=== PATIENT | female | born 1990 | race Caucasian/White ===

== ENCOUNTER 2021-06-16 11:08 | Inpatient (IN) | payer MEDICAID ==
[2021-06-16] MEDS ORDERED: Tranexamic Acid 1,000 MG in Sodium Chloride 0.9% 100 ML IV PRN (14:10)
[2021-06-16] MEDS ORDERED: Methylergonovine 0.2 MG/1 ML Amp IM PRN (14:10)
[2021-06-16] MEDS ORDERED: Lidocaine 1% 50 ML MDV INJECT PRN (14:10)
[2021-06-16] MEDS ORDERED: Misoprostol 200 MCG Tab PO PRN (14:10)
[2021-06-16] MEDS ORDERED: Nalbuphine 10 MG/1 ML Vial IVPUSH PRN (14:10)
[2021-06-16] MEDS ORDERED: Sodium Chloride 0.9% 2.5 ML Syringe FLUSH PRN (14:10)
[2021-06-16] MEDS ORDERED: Sodium Chloride 0.9% 10 ML Syringe FLUSH PRN (14:10)
[2021-06-16] MEDS ORDERED: Water For Irrigation,Sterile 1,000 ML Container IRR PRN (14:10)
[2021-06-16] MEDS ORDERED: Carboprost Tromethamine 250 MCG/1 ML Amp IM PRN (14:10)
[2021-06-16] MEDS ORDERED: Sodium Chloride 0.9% 10 ML SDV IV PRN (14:10)
[2021-06-16] MEDS ORDERED: Oxytocin/0.9 % Sodium Chloride 30 UNIT/500 ML BAG IV SCH (14:15)
[2021-06-16] MEDS: Butorphanol 1 MG/ML SDV IVPUSH PRN ×3 (16:30→20:59)
[2021-06-16] MEDS: Lactated Ringers 1,000 ML IV SCH (18:22)
[2021-06-16] MEDS ORDERED: Misoprostol 50 MCG (1/2 of 100 MCG) Tab VAG ONE (19:57)
[2021-06-16] MEDS ORDERED: Ondansetron 4 MG/2 ML SDV IVPUSH PRN (20:58)
[2021-06-16] MEDS ORDERED: Ondansetron 4 MG/2 ML SDV ONE (21:03)
[2021-06-16] MEDS ORDERED: Ropivacaine HCl/PF 200 ML ONE ×2 (23:18→23:37)
--- NOTE | 2021-06-17 00:01 | PCM.PREANE ---
Preanesthetic Assessment - Anesthesia/Transfusion/Family Hx Anesthesia History: No Prior Anesthesia Family History of Anesthesia Reaction: No Transfusion History: No Prior Transfusion(s) - Review of Systems General: No Symptoms Pulmonary: No Symptoms Cardiovascular: No Symptoms Gastrointestinal: No Symptoms Neurological: No Symptoms Other: Reports: None - Physical Assessment Height: 5 ft 7 in Weight: 183 lb ASA Class: 2 Mental Status: Alert & Oriented x3 Dentition: Reports: Normal Dentition ROM/Head Extension: Full Lungs: Clear to Auscultation, Normal Respiratory Effort Cardiovascular: Regular Rate, Regular Rhythm - Lab Values: Laboratory Last Values WBC 13.08 K/uL (4.0-11.0) H 06/16/21 14:45 RBC 4.15 M/uL (4.30-5.90) L 06/16/21 14:45 Hgb 12.3 g/dL (12.0-16.0) 06/16/21 14:45 Hct 36.1 % (36.0-46.0) 06/16/21 14:45 MCV 87.0 fL (80.0-98.0) 06/16/21 14:45 MCH 29.6 pg (27.0-32.0) 06/16/21 14:45 MCHC 34.1 g/dL (31.0-37.0) 06/16/21 14:45 RDW Std Deviation 44.9 fl (28.0-62.0) 06/16/21 14:45 RDW Coeff of Tita 14 % (11.0-15.0) 06/16/21 14:45 Plt Count 232 K/uL (150-400) 06/16/21 14:45 MPV 11.00 fL (7.40-12.00) 06/16/21 14:45 Nucleated RBC % 0.0 /100WBC 06/16/21 14:45 Nucleated RBCs # 0 K/uL 06/16/21 14:45 SARS-CoV-2 RNA (OSCAR) NEGATIVE (NEGATIVE) 06/16/21 13:10 Blood Type A NEGATIVE 06/16/21 14:45 Antibody Screen NEGATIVE 06/16/21 14:45 - Allergies Allergies/Adverse Reactions: Allergies Allergy/AdvReac Type Severity Reaction Status Date / Time No Known Allergies Allergy Verified 07/01/14 14:56 - Blood Blood Available: Yes Product(s) Available: PRBC, FFP, Platelets - Anesthesia Plan Pre-Op Medication Ordered: None - Acknowledgements Anesthesia Type Planned: Epidural Pt an Appropriate Candidate for the Planned Anesthesia: Yes Alternatives and Risks of Anesthesia Discussed w Pt/Guardian: Yes Pt/Guardian Understands and Agrees with Anesthesia Plan: Yes PreAnesthesia Questionnaire - CURRENT (IN HOUSE) MEDS Current Meds: Current Medications Butorphanol Tartrate (Butorphanol 1 Mg/Ml Sdv) 1 mg IVPUSH Q1H PRN PRN Reason: Pain (severe 7-10) Last Admin: 06/16/21 20:59 Dose: 1 mg Documented by: Carboprost Tromethamine (Carboprost Tromethamine 250 Mcg/1 Ml Amp) 250 mcg IM ASDIRECTED PRN PRN Reason: Post Hemorrhage Lactated Ringer's (Ringers, Lactated) 1,000 mls @ 150 mls/hr IV ASDIRECTED WES Last Admin: 06/16/21 18:22 Dose: 150 mls/hr Documented by: Oxytocin/Sodium Chloride (Oxytocin 30 Unit/500 Ml-Ns) 30 unit in 500 mls @ 250 mls/hr IV TITRATE WES Tranexamic Acid 1,000 mg/ (Sodium Chloride) 110 mls @ 660 mls/hr IV ONETIME PRN PRN Reason: Bleeding Lidocaine HCl (Lidocaine 1% 50 Ml Mdv) 50 ml INJECT ONETIME PRN PRN Reason: Laceration repair Methylergonovine Maleate (Methylergonovine 0.2 Mg/1 Ml Amp) 0.2 mg IM ASDIRECTED PRN PRN Reason: Post Hemorrhage Misoprostol (Misoprostol 200 Mcg Tab) 200 mcg PO ONETIME PRN PRN Reason: Post Hemorrhage Nalbuphine HCl (Nalbuphine 10 Mg/1 Ml Vial) 10 mg IVPUSH Q1H PRN PRN Reason: Pain (severe 7-10) Last Admin: 06/16/21 22:15 Dose: 10 mg Documented by: Ondansetron HCl (Ondansetron 4 Mg/2 Ml Sdv) 4 mg IVPUSH Q4H PRN PRN Reason: Vomiting Last Admin: 06/16/21 21:05 Dose: 4 mg Documented by: Sodium Chloride (Sodium Chloride 0.9% 10 Ml Syringe) 10 ml FLUSH ASDIRECTED PRN PRN Reason: Keep Vein Open Sodium Chloride (Sodium Chloride 0.9% 2.5 Ml Syringe) 2.5 ml FLUSH ASDIRECTED PRN PRN Reason: Keep Vein Open Sodium Chloride (Sodium Chloride 0.9% 10 Ml Sdv) 10 ml IV ASDIRECTED PRN PRN Reason: IV Use Sterile Water (Water For Irrigation,Sterile 1,000 Ml Container) 1,000 ml IRR ASDIRECTED PRN PRN Reason: delivery Discontinued Medications Ropivacaine (Naropin 0.2%) Confirm Administered Dose 200 mls @ as directed .ROUTE .STK-MED ONE Stop: 06/16/21 23:19 Ropivacaine (Naropin 0.2%) Confirm Administered Dose 200 mls @ as directed .ROUTE .STK-MED ONE Stop: 06/16/21 23:38 Misoprostol (Misoprostol 50 Mcg (1/2 Of 100 Mcg) Tab) 25 mcg VAG ONETIME ONE Stop: 06/16/21 19:58 Ondansetron HCl (Ondansetron 4 Mg/2 Ml Sdv) Confirm Administered Dose 4 mg .ROUTE .STK-MED ONE Stop: 06/16/21 21:04 - Pre-Procedure Checklist Attending Provider Aware: Yes Chart Reviewed: Yes Consent Signed: Yes Labs Reviewed: Yes VS/FHR Reviewed: Yes Patient Identification Confirmation Method: Reports: Verbal Patient Pt an Appropriate Candidate for the Planned Anesthesia: Yes Alternatives and Risks of Anesthesia Discussed w Pt/Guardian: Yes - Procedure Procedure Start Date: 06/16/21 Procedure Start Time: 23:23 Patient Position: Reports: Sitting Prep: Reports: Betadine x3, Sterile Drape Regional Placement Level: Reports: L3-4 Approach: Reports: Midline Technique: Reports: ISIDRO Plastic Syringe Fluid Obtained: Reports: None Loading Dose Time: 23:20 Loading Dose Medication: bupivicaine 0.25% 10cc Loading Dose Patient Position: sitting Continuous Infusion Start Time: 23:25 Continuous Infusion Medication: ropivicaine 0.2% Continuous Infusion Rate: 16 Continuous Infusion PCS Bolus Option: 4 Continuous Infusion Lockout Dose (cc/hr): 32 Patient Position Post Placement: Reports: Alexey/FRAN Procedure End Date: 06/17/21 Procedure End Time: 00:23
--- NOTE | 2021-06-17 00:02 | PCM.POSTAN ---
POST ANESTHESIA ASSESSMENT - MENTAL STATUS Mental Status: Alert, Oriented - RESPIRATORY Respiratory Status: Respiratory Rate WNL, Airway Patent, O2 Saturation Stable - CARDIOVASCULAR CV Status: Pulse Rate WNL, Blood Pressure Stable - GASTROINTESTINAL GI Status: No Symptoms - POST OP HYDRATION Hydration Status: Adequate & Stable
[2021-06-17] MEDS: Lactated Ringers 1,000 ML IV SCH ×3 (00:08→17:42)
[2021-06-17] MEDS ORDERED: Acetaminophen 500 MG Tab PO ONE (05:03)
[2021-06-17] MEDS ORDERED: Acetaminophen 500 MG Tab ONE (05:06)
[2021-06-17] MEDS ORDERED: Ampicillin 2 GM in Sodium Chloride 0.9% 100 ML IV SCH (07:00)
[2021-06-17] MEDS ORDERED: Oxytocin/0.9 % Sodium Chloride 30 UNIT/500 ML BAG IV SCH (07:30)
[2021-06-17] MEDS ORDERED: Bupivacaine 0.5% 10 ML SDV ONE (08:42)
[2021-06-17] MEDS ORDERED: fentaNYL 100 MCG/2 ML SDV ONE (08:43)
[2021-06-17] MEDS ORDERED: ceFAZolin 1 GM Vial ONE (08:52)
[2021-06-17] MEDS ORDERED: Oxytocin 10 Units/1 ML SDV ONE (08:56)
[2021-06-17] MEDS ORDERED: Ondansetron 4 MG/2 ML SDV ONE (08:56)
[2021-06-17] MEDS ORDERED: Ketorolac 30 MG/ML SDV ONE (08:56)
[2021-06-17] MEDS ORDERED: Morphine PF 10 MG/10 ML SDV ONE (09:25)
[2021-06-17] MEDS ORDERED: Oxytocin 10 Units/1 ML SDV IM PRN (10:00)
[2021-06-17] MEDS ORDERED: Lanolin 100% Cream 7 GM Tube TOP PRN (10:00)
[2021-06-17] MEDS ORDERED: Ondansetron 4 MG/2 ML SDV IVPUSH PRN (10:00)
[2021-06-17] MEDS ORDERED: Bisacodyl 10 MG Supp RECTAL PRN (10:00)
[2021-06-17] MEDS ORDERED: Misoprostol 200 MCG Tab RECTAL PRN (10:00)
[2021-06-17] MEDS ORDERED: Acetaminophen/oxyCODONE 325-5 MG Tab PO PRN (10:00)
[2021-06-17] MEDS ORDERED: Methylergonovine 0.2 MG/1 ML Amp IM PRN (10:00)
[2021-06-17] MEDS ORDERED: diphenhydrAMINE 50 MG/ML SDV IVPUSH PRN (10:00)
[2021-06-17] MEDS ORDERED: Tranexamic Acid 1,000 MG in Sodium Chloride 0.9% 100 ML IV PRN (10:00)
--- NOTE | 2021-06-17 10:11 | PCM.OPNOTE ---
- General Post-Op/Procedure Note Date of Surgery/Procedure: 06/17/21 Operative Procedure(s): Primary low transverse section Findings: Viable boy. Apgars 4 and 8. Weight 3490 grams. Pre Op Diagnosis: 30-year-old at 41 weeks 2 days dated by LMP and 10 week ultrasound. Chorioamnionitis, given ampicillin and gentamicin. Occult cord prolapse during labor with abnormal heart tones. Post-Op Diagnosis: Same Anesthesia Technique: Epidural Primary Surgeon: Mimi Mendoza [employer] Top Helper: Gaby Bunn Fluid Replacement, Intraop: 1,000 Output, Urine Amount: 100 EBL in mLs: 600 Complications: None known Condition: Good
--- NOTE | 2021-06-17 10:12 | PCM.OPNOTE ---
- General Post-Op/Procedure Note Condition: Good
[2021-06-17] MEDS ORDERED: diphenhydrAMINE 50 MG/ML SDV IVPUSH ONE (10:32)
[2021-06-17] MEDS ORDERED: Sodium Chloride 0.9% 0 ML ONE (10:45)
[2021-06-17] MEDS: Ampicillin/Sulbactam Na 1.5 GM in Sodium Chloride 0.9% 50 ML IV SCH ×2 (10:53→19:27)
[2021-06-17] MEDS: Simethicone 80 MG Tab.Chew PO SCH ×2 (12:00→19:26)
--- NOTE | 2021-06-17 16:50 | OR ---
SURGEON: Mimi Mendoza M.D. DATE OF PROCEDURE: 06/17/2021 PREOPERATIVE DIAGNOSES: 1. 41 and 4/7 weeks' intrauterine . 2. Abnormal heart tones. 3. Occult cord prolapse. 4. Chorioamnionitis. POSTOPERATIVE DIAGNOSES: 1. 41 and 4/7 weeks' intrauterine . 2. Abnormal heart tones. 3. Occult cord prolapse. 4. Chorioamnionitis. PROCEDURE: Primary low-transverse section. PRIMARY SURGEON: Mimi Mendoza M.D. [employer]: Valentina Bunn MS4. ANESTHESIA: Epidural. ESTIMATED BLOOD LOSS: 600 mL. FLUIDS: 1000 mL of crystalloid in OR. COMPLICATIONS: None. FINDINGS: Viable male. score of 4 at one minute, 8 at five minutes. Weight of 3410 g. Delivery, intact placenta, 3-vessel cord, meconium-stained amniotic fluid. DISPOSITION: to nursery, mom to PACU stable. PROCEDURE DETAILS: Amanda is a 30-year-old G1, P0, at 41 and 3/7 weeks' gestational age, who presented on 06/16/2021 in labor. She was monitored through the labor process by my partner. I assumed care of the patient at 8 a.m. on the morning of 06/17/2021. At that juncture, the patient had been pushing approximately 3 hours, had been started on antibiotics for chorioamnionitis. Meconium-stained fluid was noted, and there were recurrent decelerations. Upon my evaluation, the patient was still a +3 station with transverse presentation. With any attempts at rotation and pushing efforts, it was noticed that there was a loop of cord that was sliding down anteriorly at the 12 o'clock position. It was then reduced between contractions and pushing efforts. Given this finding and with the abnormal heart tones, advised proceeding with . Risks of procedure discussed including infection; bleeding; possible trauma to the surrounding bowel, bladder, ureters; in case of excessive blood loss, need for blood transfusion; in rare lifesaving circumstances, need for hysterectomy; risk for thromboembolic event; risk of anesthesia. The patient and her partner voiced their understanding and agreed to proceed. A proper consent was obtained. The patient was taken to the operating room. The patient underwent re-bolus of her epidural, was transported to the section suite, was placed in modified dorsal supine position with leftward tilt. Did flex the knees to allow for vaginal hand delivery. heart tones remained in the 120s at this point. The patient was prepped and draped in the usual sterile fashion. Foster to gravity. SCDs to the lower extremities. Time-out was performed. Anesthesia was found be adequate. A Pfannenstiel skin incision now was created, carried down to the level of the rectus fascia, was incised in the midline, lateralized on either side sharply and bluntly. Superior aspect of fascia was tented upwards, dissected sharply and bluntly from underlying muscles. A similar aspect performed in the inferior aspect of the fascia. Rectus muscle was in the midline. Peritoneum was entered. Rectus muscles and peritoneum were now lateralized bluntly. Uterine position and position palpated. Self-retaining retractor was gently placed. Uterovesical reflection was visualized. Bladder flap was created sharply and bluntly. Bladder was mobilized away from lower uterine segment. Low transverse hysterotomy was now performed. Uterine cavity was entered with blunt end of the scalpel. Hysterotomy was lateralized bluntly. Meconium-stained fluid was noted. The infant's shoulder was now retracted up and into the abdomen followed by flexion of the head with vaginal hand helping to move the 's head cephalad, was able to flex the head, delivered from the pelvis followed by delivery of shoulders, trunk, remainder of the body without difficulty. The infant's oropharynx and nares were bulb suctioned. Cord was clamped x2 and cut. Infant was immediately handed off to attending foster parent. Cord arterial, cord venous, and cord blood sampling were obtained. The placenta was now delivered. Uterine cavity was cleared of all clot and debris. Hysterotomy repaired using 0 Vicryl in continuous running locked fashion followed by re-imbricating layer. Hemostasis appeared evident. Posterior aspect of the uterus inspected. No defects or hematomas found be forming. Region was well irrigated and suction dried. Uterus returned to the abdominal cavity. Colonic gutters were cleared of all clot and debris, well irrigated and suction dried. Hysterotomy once again inspected and found to be hemostatic. Self-retaining tractor now gently removed. Bladder blade was placed. Hysterotomy once again inspected and found to be hemostatic. The rectus muscle and peritoneum were now reapproximated with 0 Vicryl in inverted mattress suture technique. Anterior aspect of the muscle, posterior aspect of the fascia closely inspected. Any areas of oozing were cauterized. The rectus fascia now reapproximated with 0 Vicryl in continuous running fashion beginning laterally on either side and meeting in the midline. Subcutaneous tissue was well irrigated and suction dried. Any areas of oozing were cauterized. The skin edges were reapproximated using 4-0 Vicryl in subcuticular fashion on Rachid needle. 0.5-inch Steri-Strips with Mastisol was now placed to re-imbricate the incision. Uterus remained firm. Sponge, instrument, and needle count was correct x2. The patient tolerated the procedure well overall. She is going to PACU in stable condition. We will continue with prophylactic antibiotic given the chorioamnionitis. JOESPH NELSON /[id number] MIKAYLA
[2021-06-17] MEDS: Docusate Sodium 100 MG Cap PO SCH (20:25)
[2021-06-17] MEDS: Acetaminophen/oxyCODONE 325-5 MG Tab PO PRN (20:26)
[2021-06-18] MEDS: Simethicone 80 MG Tab.Chew PO SCH ×4 (01:08→23:44)
[2021-06-18] MEDS: Ampicillin/Sulbactam Na 1.5 GM in Sodium Chloride 0.9% 50 ML IV SCH ×3 (03:05→18:13)
[2021-06-18] MEDS: Acetaminophen/oxyCODONE 325-5 MG Tab PO PRN ×3 (04:34→20:21)
[2021-06-18] MEDS ORDERED: Acetaminophen 500 MG Tab PO ONE (06:22)
--- NOTE | 2021-06-18 07:49 | PCM.PNPP ---
<Gaby Bunn - Last Filed: 06/18/21 07:53> - General Info Date of Service: 06/18/21 Subjective Update: Patient doing well overnight, no concerns. Foster catheter out this morning, has not yet spontaneously urinated. Ambulating and tolerating food well. - Review of Systems General: Reports: No Symptoms HEENT: Reports: Sinus Congestion Pulmonary: Reports: No Symptoms Cardiovascular: Reports: No Symptoms Gastrointestinal: Reports: No Symptoms Genitourinary: Reports: No Symptoms Musculoskeletal: Reports: No Symptoms Skin: Reports: No Symptoms Neurological: Reports: No Symptoms Psychiatric: Reports: No Symptoms - General Info Date of Service: 06/18/21 - Patient Data Vital Signs - Most Recent: Last Vital Signs Temp 36.5 C 06/18/21 07:43 Pulse 113 H 06/18/21 07:43 Resp 18 06/18/21 07:43 BP 126/60 06/18/21 07:43 Pulse Ox 99 06/18/21 07:43 Weight - Most Recent: 83.007 kg I&O - Last 24 Hours: Intake & Output 06/17/21 06/18/21 06/18/21 22:59 06:59 14:59 Intake Total 50 Output Total 800 1950 Balance -750 -1950 Lab Results - Last 24 Hours: Laboratory Results - last 24 hr 06/17/21 06/18/21 Range/Units 17:20 05:56 WBC 12.70 H 11.32 H (4.0-11.0) K/uL RBC 3.20 L 2.92 L (4.30-5.90) M/uL Hgb 9.6 L 8.7 L (12.0-16.0) g/dL Hct 27.9 L 25.6 L (36.0-46.0) % MCV 87.2 87.7 (80.0-98.0) fL MCH 30.0 29.8 (27.0-32.0) pg MCHC 34.4 34.0 (31.0-37.0) g/dL RDW Std Deviation 45.4 47.3 (28.0-62.0) fl RDW Coeff of Tita 15 15 (11.0-15.0) % Plt Count 185 174 (150-400) K/uL MPV 11.00 11.10 (7.40-12.00) fL Neut % (Auto) 88.5 H 82.3 H (48.0-80.0) % Lymph % (Auto) 5.4 L 9.1 L (16.0-40.0) % [place] % (Auto) 6.0 7.9 (0.0-15.0) % Eos % (Auto) 0.1 0.6 (0.0-7.0) % Baso % (Auto) 0.0 0.1 (0.0-1.5) % Neut # (Auto) 11.2 H 9.3 H (1.4-5.7) K/uL Lymph # (Auto) 0.7 1.0 (0.6-2.4) K/uL [place] # (Auto) 0.8 0.9 H (0.0-0.8) K/uL Eos # (Auto) 0.0 0.1 (0.0-0.7) K/uL Baso # (Auto) 0.0 0.0 (0.0-0.1) K/uL Nucleated RBC % 0.0 0.0 /100WBC Nucleated RBCs # 0 0 K/uL Med Orders - Current: Current Medications Bisacodyl (Bisacodyl 10 Mg Supp) 10 mg RECTAL ONETIME PRN PRN Reason: Constipation Diphenhydramine HCl (Diphenhydramine 50 Mg/Ml Sdv) 25 mg IVPUSH Q6H PRN PRN Reason: Itching or Nausea Docusate Sodium (Docusate Sodium 100 Mg Cap) 100 mg PO BID [facility] Last Admin: 06/17/21 20:25 Dose: 100 mg Documented by: Emollient Ointment (Lanolin 100% Cream 7 Gm Tube) 0 gm TOP ASDIRECTED PRN PRN Reason: Sore Nipples Lactated Ringer's (Ringers, Lactated) 1,000 mls @ 125 mls/hr IV ASDIRECTED [facility] Last Admin: 06/17/21 17:42 Dose: 999 mls/hr Documented by: Tranexamic Acid 1,000 mg/ (Sodium Chloride) 110 mls @ 660 mls/hr IV ONETIME PRN PRN Reason: Bleeding Ampicillin Sodium/Sulbactam (Sodium 3 gm/ Sodium Chloride) 100 mls @ 200 mls/hr IV Q8H [facility] Methylergonovine Maleate (Methylergonovine 0.2 Mg/1 Ml Amp) 0.2 mg IM ONETIME PRN PRN Reason: Excessive Vaginal Bleeding Misoprostol (Misoprostol 200 Mcg Tab) 1,000 mcg RECTAL ONETIME PRN PRN Reason: excessive bleeding Ondansetron HCl (Ondansetron 4 Mg/2 Ml Sdv) 4 mg IVPUSH Q4H PRN PRN Reason: Nausea/Vomiting Oxycodone/Acetaminophen (Acetaminophen/Oxycodone 325-5 Mg Tab) 1 tab PO Q4H PRN PRN Reason: Pain (severe 7-10) Last Admin: 06/18/21 04:34 Dose: 1 tab Documented by: Oxycodone/Acetaminophen (Acetaminophen/Oxycodone 325-5 Mg Tab) 2 tab PO Q4H PRN PRN Reason: Pain (severe 7-10) Oxytocin (Oxytocin 10 Units/1 Ml Sdv) 10 unit IM ASDIRECTED PRN PRN Reason: Excessive Vaginal Bleeding Simethicone (Simethicone 80 Mg Tab.Chew) 160 mg PO QID [facility] Last Admin: 06/18/21 06:49 Dose: Not Given Documented by: Sodium Chloride (Sodium Chloride 0.9% 10 Ml Syringe) 10 ml FLUSH ASDIRECTED PRN PRN Reason: Keep Vein Open Sodium Chloride (Sodium Chloride 0.9% 2.5 Ml Syringe) 2.5 ml FLUSH ASDIRECTED PRN PRN Reason: Keep Vein Open Sodium Chloride (Sodium Chloride 0.9% 10 Ml Sdv) 10 ml IV ASDIRECTED PRN PRN Reason: IV Use Discontinued Medications Acetaminophen (Acetaminophen 500 Mg Tab) 1,000 mg PO ONETIME ONE Stop: 06/17/21 05:04 Last Admin: 06/17/21 05:08 Dose: 1,000 mg Documented by: Acetaminophen (Acetaminophen 500 Mg Tab) Confirm Administered Dose 1,000 mg .ROUTE .STK-MED ONE Stop: 06/17/21 05:07 Last Admin: 06/17/21 17:55 Dose: Not Given Documented by: Acetaminophen (Acetaminophen 500 Mg Tab) 1,000 mg PO ONETIME ONE Stop: 06/18/21 06:23 Last Admin: 06/18/21 06:53 Dose: 1,000 mg Documented by: Bupivacaine HCl (Bupivacaine 0.5% 10 Ml Sdv) Confirm Administered Dose 20 ml .RO [place] .STK-MED ONE Stop: 06/17/21 08:43 Butorphanol Tartrate (Butorphanol 1 Mg/Ml Sdv) 1 mg IVPUSH Q1H PRN PRN Reason: Pain (severe 7-10) Last Admin: 06/16/21 20:59 Dose: 1 mg Documented by: Carboprost Tromethamine (Carboprost Tromethamine 250 Mcg/1 Ml Amp) 250 mcg IM ASDIRECTED PRN PRN Reason: Post Hemorrhage Cefazolin Sodium (Cefazolin 1 Gm Vial) Confirm Administered Dose 2 gm .ROUTE .STK-MED ONE Stop: 06/17/21 08:53 Diphenhydramine HCl (Diphenhydramine 50 Mg/Ml Sdv) 25 mg IVPUSH ONETIME ONE Stop: 06/17/21 10:33 Last Admin: 06/17/21 10:55 Dose: 25 mg Documented by: Fentanyl (Fentanyl 100 Mcg/2 Ml Sdv) Confirm Administered Dose 100 mcg .ROUTE .STK-MED ONE Stop: 06/17/21 08:44 Lactated Ringer's (Ringers, Lactated) 1,000 mls @ 150 mls/hr IV ASDIRECTED [facility] Last Admin: 06/17/21 00:08 Dose: 150 mls/hr Documented by: Oxytocin/Sodium Chloride (Oxytocin 30 Unit/500 Ml-Ns) 30 unit in 500 mls @ 250 mls/hr IV TITRATE [facility] Tranexamic Acid 1,000 mg/ (Sodium Chloride) 110 mls @ 660 mls/hr IV ONETIME PRN PRN Reason: Bleeding Ropivacaine (Naropin 0.2%) Confirm Administered Dose 200 mls @ as directed .ROUTE .STK-MED ONE Stop: 06/16/21 23:19 Last Admin: 06/17/21 17:56 Dose: Not Given Documented by: Ropivacaine (Naropin 0.2%) Confirm Administered Dose 200 mls @ as directed .ROUTE .STK-MED ONE Stop: 06/16/21 23:38 Last Admin: 06/17/21 17:55 Dose: Not Given Documented by: Ampicillin Sodium 2 gm/ Sodium (Chloride) 100 mls @ 200 mls/hr IV Q6H [facility] Stop: 06/18/21 01:29 Last Admin: 06/17/21 07:27 Dose: 200 mls/hr Documented by: Gentamicin Sulfate 350 mg/ (Sodium Chloride) 58.75 mls @ 100 mls/hr IV ONETIME ONE Stop: 06/17/21 07:50 Last Admin: 06/17/21 07:57 Dose: 100 mls/hr Documented by: Oxytocin/Sodium Chloride (Oxytocin 30 Unit/500 Ml-Ns) 30 unit in 500 mls @ 2 mls/hr IV TITRATE [facility]; Protocol Last Infusion: 06/17/21 08:35 Dose: 0 munits/min, 0 mls/hr Documented by: Ampicillin Sodium/Sulbactam (Sodium 1.5 gm/ Sodium Chloride) 50 mls @ 150 mls/hr IV Q8H [facility] Stop: 06/18/21 02:34 Last Admin: 06/18/21 03:05 Dose: 150 mls/hr Documented by: Sodium Chloride (Normal Saline) Confirm Administered Dose 50 mls @ as directed .ROUTE .STK-MED ONE Stop: 06/17/21 10:46 Last Admin: 06/17/21 17:55 Dose: Not Given Documented by: Ketorolac Tromethamine (Ketorolac 30 Mg/Ml Sdv) Confirm Administered Dose 30 mg .ROUTE .STK-MED ONE Stop: 06/17/21 08:57 Lidocaine HCl (Lidocaine 1% 50 Ml Mdv) 50 ml INJECT ONETIME PRN PRN Reason: Laceration repair Methylergonovine Maleate (Methylergonovine 0.2 Mg/1 Ml Amp) 0.2 mg IM ASDIRECTED PRN PRN Reason: Post Hemorrhage Misoprostol (Misoprostol 200 Mcg Tab) 200 mcg PO ONETIME PRN PRN Reason: Post Hemorrhage Misoprostol (Misoprostol 50 Mcg (1/2 Of 100 Mcg) Tab) 25 mcg VAG ONETIME ONE Stop: 06/16/21 19:58 Morphine Sulfate (Morphine Pf 10 Mg/10 Ml Sdv) Confirm Administered Dose 10 mg .ROUTE .STK-MED ONE Stop: 06/17/21 09:26 Nalbuphine HCl (Nalbuphine 10 Mg/1 Ml Vial) 10 mg IVPUSH Q1H PRN PRN Reason: Pain (severe 7-10) Last Admin: 06/16/21 22:15 Dose: 10 mg Documented by: Ondansetron HCl (Ondansetron 4 Mg/2 Ml Sdv) 4 mg IVPUSH Q4H PRN PRN Reason: Vomiting Last Admin: 06/16/21 21:05 Dose: 4 mg Documented by: Ondansetron HCl (Ondansetron 4 Mg/2 Ml Sdv) Confirm Administered Dose 4 mg .ROUTE .STK-MED ONE Stop: 06/16/21 21:04 Last Admin: 06/17/21 17:56 Dose: Not Given Documented by: Ondansetron HCl (Ondansetron 4 Mg/2 Ml Sdv) Confirm Administered Dose 4 mg .ROUTE .STK-MED ONE Stop: 06/17/21 08:57 Oxytocin (Oxytocin 10 Units/1 Ml Sdv) Confirm Administered Dose 30 unit .ROUTE .STK-MED ONE Stop: 06/17/21 08:57 Sterile Water (Water For Irrigation,Sterile 1,000 Ml Container) 1,000 ml IRR ASDIRECTED PRN PRN Reason: delivery - Infant Interaction Infant Disposition, : [place] to Nursery Feeding: Attempted ; Nursed Fair/Poor Support Person: Significant Other - Recovery Exam Fundal Tone: Firm Fundal Level: 1 Fingerbreadths Below Umbilicus Fundal Placement: Midline Lochia Amount: Scant Lochia Color: Rubra/Red Episiotomy/Laceration: None Urinary Elimination: Other (see below) (Catheter out this morning. Not yet spontaneously urinated) - Exam General: Alert, Oriented, Cooperative Neck: Supple Lungs: Clear to Auscultation, Normal Respiratory Effort Cardiovascular: Regular Rate, Regular Rhythm GI/Abdominal Exam: Soft, Non-Tender Extremities: Normal Inspection, Normal Range of Motion, Non-Tender, No Pedal Edema Skin: Warm, Dry Wound/Incisions: Healing Well, Dressing Dry and Intact Neurological: No New Focal Deficit Psy/Mental Status: Alert, Normal Affect, Normal Mood - Problem List Review Problem List Initiated/Reviewed/Updated: Yes - Assessment Assessment:: 30-year-old s/p primary transverse section POD #1. No complaints. Hbg 8.7, denies symptoms. Afebrile. - Plan Plan:: - Routine care - Encourage ambulation - Aspirin for pain - Monitor incision site pain <Mimi Mendoza - Last Filed: 06/18/21 08:53> - Patient Data Vital Signs - Most Recent: Last Vital Signs Temp 36.5 C 06/18/21 07:43 Pulse 113 H 06/18/21 07:43 Resp 18 06/18/21 07:43 BP 126/60 06/18/21 07:43 Pulse Ox 99 06/18/21 07:43 I&O - Last 24 Hours: Intake & Output 06/17/21 06/18/21 06/18/21 22:59 06:59 14:59 Intake Total 50 Output Total 800 1950 Balance -750 -1950 Lab Results - Last 24 Hours: Laboratory Results - last 24 hr 06/17/21 06/18/21 Range/Units 17:20 05:56 WBC 12.70 H 11.32 H (4.0-11.0) K/uL RBC 3.20 L 2.92 L (4.30-5.90) M/uL Hgb 9.6 L 8.7 L (12.0-16.0) g/dL Hct 27.9 L 25.6 L (36.0-46.0) % MCV 87.2 87.7 (80.0-98.0) fL MCH 30.0 29.8 (27.0-32.0) pg MCHC 34.4 34.0 (31.0-37.0) g/dL RDW Std Deviation 45.4 47.3 (28.0-62.0) fl RDW Coeff of Tita 15 15 (11.0-15.0) % Plt Count 185 174 (150-400) K/uL MPV 11.00 11.10 (7.40-12.00) fL Neut % (Auto) 88.5 H 82.3 H (48.0-80.0) % Lymph % (Auto) 5.4 L 9.1 L (16.0-40.0) % [place] % (Auto) 6.0 7.9 (0.0-15.0) % Eos % (Auto) 0.1 0.6 (0.0-7.0) % Baso % (Auto) 0.0 0.1 (0.0-1.5) % Neut # (Auto) 11.2 H 9.3 H (1.4-5.7) K/uL Lymph # (Auto) 0.7 1.0 (0.6-2.4) K/uL [place] # (Auto) 0.8 0.9 H (0.0-0.8) K/uL Eos # (Auto) 0.0 0.1 (0.0-0.7) K/uL Baso # (Auto) 0.0 0.0 (0.0-0.1) K/uL Nucleated RBC % 0.0 0.0 /100WBC Nucleated RBCs # 0 0 K/uL Med Orders - Current: Current Medications Bisacodyl (Bisacodyl 10 Mg Supp) 10 mg RECTAL ONETIME PRN PRN Reason: Constipation Diphenhydramine HCl (Diphenhydramine 50 Mg/Ml Sdv) 25 mg IVPUSH Q6H PRN PRN Reason: Itching or Nausea Docusate Sodium (Docusate Sodium 100 Mg Cap) 100 mg PO BID [facility] Last Admin: 06/17/21 20:25 Dose: 100 mg Documented by: Emollient Ointment (Lanolin 100% Cream 7 Gm Tube) 0 gm TOP ASDIRECTED PRN PRN Reason: Sore Nipples Lactated Ringer's (Ringers, Lactated) 1,000 mls @ 125 mls/hr IV ASDIRECTED [facility] Last Admin: 06/17/21 17:42 Dose: 999 mls/hr Documented by: Tranexamic Acid 1,000 mg/ (Sodium Chloride) 110 mls @ 660 mls/hr IV ONETIME PRN PRN Reason: Bleeding Ampicillin Sodium/Sulbactam (Sodium 3 gm/ Sodium Chloride) 100 mls @ 200 mls/hr IV Q8H [facility] Methylergonovine Maleate (Methylergonovine 0.2 Mg/1 Ml Amp) 0.2 mg IM ONETIME PRN PRN Reason: Excessive Vaginal Bleeding Misoprostol (Misoprostol 200 Mcg Tab) 1,000 mcg RECTAL ONETIME PRN PRN Reason: excessive bleeding Ondansetron HCl (Ondansetron 4 Mg/2 Ml Sdv) 4 mg IVPUSH Q4H PRN PRN Reason: Nausea/Vomiting Oxycodone/Acetaminophen (Acetaminophen/Oxycodone 325-5 Mg Tab) 1 tab PO Q4H PRN PRN Reason: Pain (severe 7-10) Last Admin: 06/18/21 04:34 Dose: 1 tab Documented by: Oxycodone/Acetaminophen (Acetaminophen/Oxycodone 325-5 Mg Tab) 2 tab PO Q4H PRN PRN Reason: Pain (severe 7-10) Oxytocin (Oxytocin 10 Units/1 Ml Sdv) 10 unit IM ASDIRECTED PRN PRN Reason: Excessive Vaginal Bleeding Simethicone (Simethicone 80 Mg Tab.Chew) 160 mg PO QID [facility] Last Admin: 06/18/21 06:49 Dose: Not Given Documented by: Sodium Chloride (Sodium Chloride 0.9% 10 Ml Syringe) 10 ml FLUSH ASDIRECTED PRN PRN Reason: Keep Vein Open Sodium Chloride (Sodium Chloride 0.9% 2.5 Ml Syringe) 2.5 ml FLUSH ASDIRECTED PRN PRN Reason: Keep Vein Open Sodium Chloride (Sodium Chloride 0.9% 10 Ml Sdv) 10 ml IV ASDIRECTED PRN PRN Reason: IV Use Discontinued Medications Acetaminophen (Acetaminophen 500 Mg Tab) 1,000 mg PO ONETIME ONE Stop: 06/17/21 05:04 Last Admin: 06/17/21 05:08 Dose: 1,000 mg Documented by: Acetaminophen (Acetaminophen 500 Mg Tab) Confirm Administered Dose 1,000 mg .ROUTE .STK-MED ONE Stop: 06/17/21 05:07 Last Admin: 06/17/21 17:55 Dose: Not Given Documented by: Acetaminophen (Acetaminophen 500 Mg Tab) 1,000 mg PO ONETIME ONE Stop: 06/18/21 06:23 Last Admin: 06/18/21 06:53 Dose: 1,000 mg Documented by: Bupivacaine HCl (Bupivacaine 0.5% 10 Ml Sdv) Confirm Administered Dose 20 ml .RO [place] .STK-MED ONE Stop: 06/17/21 08:43 Butorphanol Tartrate (Butorphanol 1 Mg/Ml Sdv) 1 mg IVPUSH Q1H PRN PRN Reason: Pain (severe 7-10) Last Admin: 06/16/21 20:59 Dose: 1 mg Documented by: Carboprost Tromethamine (Carboprost Tromethamine 250 Mcg/1 Ml Amp) 250 mcg IM ASDIRECTED PRN PRN Reason: Post Hemorrhage Cefazolin Sodium (Cefazolin 1 Gm Vial) Confirm Administered Dose 2 gm .ROUTE .STK-MED ONE Stop: 06/17/21 08:53 Diphenhydramine HCl (Diphenhydramine 50 Mg/Ml Sdv) 25 mg IVPUSH ONETIME ONE Stop: 06/17/21 10:33 Last Admin: 06/17/21 10:55 Dose: 25 mg Documented by: Fentanyl (Fentanyl 100 Mcg/2 Ml Sdv) Confirm Administered Dose 100 mcg .ROUTE .[facility] ONE Stop: 06/17/21 08:44 Lactated Ringer's (Ringers, Lactated) 1,000 mls @ 150 mls/hr IV ASDIRECTED [facility] Last Admin: 06/17/21 00:08 Dose: 150 mls/hr Documented by: Oxytocin/Sodium Chloride (Oxytocin 30 Unit/500 Ml-Ns) 30 unit in 500 mls @ 250 mls/hr IV TITRATE [facility] Tranexamic Acid 1,000 mg/ (Sodium Chloride) 110 mls @ 660 mls/hr IV ONETIME PRN PRN Reason: Bleeding Ropivacaine (Naropin 0.2%) Confirm Administered Dose 200 mls @ as directed .ROUTE .[facility] ONE Stop: 06/16/21 23:19 Last Admin: 06/17/21 17:56 Dose: Not Given Documented by: Ropivacaine (Naropin 0.2%) Confirm Administered Dose 200 mls @ as directed .ROUTE .[facility] ONE Stop: 06/16/21 23:38 Last Admin: 06/17/21 17:55 Dose: Not Given Documented by: Ampicillin Sodium 2 gm/ Sodium (Chloride) 100 mls @ 200 mls/hr IV Q6H [facility] Stop: 06/18/21 01:29 Last Admin: 06/17/21 07:27 Dose: 200 mls/hr Documented by: Gentamicin Sulfate 350 mg/ (Sodium Chloride) 58.75 mls @ 100 mls/hr IV ONETIME ONE Stop: 06/17/21 07:50 Last Admin: 06/17/21 07:57 Dose: 100 mls/hr Documented by: Oxytocin/Sodium Chloride (Oxytocin 30 Unit/500 Ml-Ns) 30 unit in 500 mls @ 2 mls/hr IV TITRATE [facility]; Protocol Last Infusion: 06/17/21 08:35 Dose: 0 munits/min, 0 mls/hr Documented by: Ampicillin Sodium/Sulbactam (Sodium 1.5 gm/ Sodium Chloride) 50 mls @ 150 mls/hr IV Q8H [facility] Stop: 06/18/21 02:34 Last Admin: 06/18/21 03:05 Dose: 150 mls/hr Documented by: Sodium Chloride (Normal Saline) Confirm Administered Dose 50 mls @ as directed .ROUTE .STK-MED ONE Stop: 06/17/21 10:46 Last Admin: 06/17/21 17:55 Dose: Not Given Documented by: Ketorolac Tromethamine (Ketorolac 30 Mg/Ml Sdv) Confirm Administered Dose 30 mg .ROUTE .STK-MED ONE Stop: 06/17/21 08:57 Lidocaine HCl (Lidocaine 1% 50 Ml Mdv) 50 ml INJECT ONETIME PRN PRN Reason: Laceration repair Methylergonovine Maleate (Methylergonovine 0.2 Mg/1 Ml Amp) 0.2 mg IM ASDIRECTED PRN PRN Reason: Post Hemorrhage Misoprostol (Misoprostol 200 Mcg Tab) 200 mcg PO ONETIME PRN PRN Reason: Post Hemorrhage Misoprostol (Misoprostol 50 Mcg (1/2 Of 100 Mcg) Tab) 25 mcg VAG ONETIME ONE Stop: 06/16/21 19:58 Morphine Sulfate (Morphine Pf 10 Mg/10 Ml Sdv) Confirm Administered Dose 10 mg .ROUTE .STK-MED ONE Stop: 06/17/21 09:26 Nalbuphine HCl (Nalbuphine 10 Mg/1 Ml Vial) 10 mg IVPUSH Q1H PRN PRN Reason: Pain (severe 7-10) Last Admin: 06/16/21 22:15 Dose: 10 mg Documented by: Ondansetron HCl (Ondansetron 4 Mg/2 Ml Sdv) 4 mg IVPUSH Q4H PRN PRN Reason: Vomiting Last Admin: 06/16/21 21:05 Dose: 4 mg Documented by: Ondansetron HCl (Ondansetron 4 Mg/2 Ml Sdv) Confirm Administered Dose 4 mg .ROUTE .STK-MED ONE Stop: 06/16/21 21:04 Last Admin: 06/17/21 17:56 Dose: Not Given Documented by: Ondansetron HCl (Ondansetron 4 Mg/2 Ml Sdv) Confirm Administered Dose 4 mg .ROUTE .STK-MED ONE Stop: 06/17/21 08:57 Oxytocin (Oxytocin 10 Units/1 Ml Sdv) Confirm Administered Dose 30 unit .ROUTE .STK-MED ONE Stop: 06/17/21 08:57 Sterile Water (Water For Irrigation,Sterile 1,000 Ml Container) 1,000 ml IRR ASDIRECTED PRN PRN Reason: delivery - My Orders Last 24 Hours: My Active Orders 06/17/21 10:00 Patient Status [ADT] Routine Ambulate [RC] PER UNIT ROUTINE Communication Order [RC] PER UNIT ROUTINE Communication Order [RC] PER UNIT ROUTINE Communication Order [RC] Per Unit Routine May Shower [RC] ASDIRECTED Notify Provider Intake and Out [RC] ASDIRECTED Notify Provider Vital Signs [RC] ASDIRECTED RT Incentive Spirometry [RC] Q2HWA Vital Signs [RC] Q1H Acetaminophen/oxyCODONE [Percocet 325-5 MG] 1 tab PO Q4H PRN Acetaminophen/oxyCODONE [Percocet 325-5 MG] 2 tab PO Q4H PRN Lactated Ringers [Ringers, Lactated] 1,000 ml IV ASDIRECTED Lanolin [Lansinoh HPA] See Dose Instructions TOP ASDIRECTED PRN Methylergonovine [Methergine] 0.2 mg IM ONETIME PRN Ondansetron [Zofran] 4 mg IVPUSH Q4H PRN Oxytocin [Pitocin] 10 unit IM ASDIRECTED PRN Tranexamic Acid [Cyklokapron] 1,000 mg Sodium Chloride 0.9% [Normal Saline] 100 ml IV ONETIME bisacodyL [Dulcolax] 10 mg RECTAL ONETIME PRN diphenhydrAMINE [Benadryl] 25 mg IVPUSH Q6H PRN miSOPROStoL [Cytotec] 1,000 mcg RECTAL ONETIME PRN Abdominal Binder [OM.PC] Routine Assess Lochia [WOMSER] Per Unit Routine Assess Uterine Involution [WOMSER] Per Unit Routine Breast Pump [WOMSER] Per Unit Routine Heat Therapy [OM.PC] Routine Ice Therapy [OM.PC] Routine Peripheral IV Discontinue [OM.PC] Routine Sequential Compression Device [OM.PC] Per Unit Routine 06/17/21 10:01 Antiembolic Devices [RC] PER UNIT ROUTINE 06/17/21 10:10 BLOOD GAS ARTERIAL UMBILICAL [BG] Routine BLOOD GAS VENOUS UMBILICAL [BG] Routine 06/17/21 Lunch Regular Diet [DIET] 06/17/21 12:00 Simethicone 160 mg PO QID 06/17/21 21:00 Docusate Sodium [Colace] 100 mg PO BID - Plan Plan:: Patient seen and examined--do not agree with aspirin for pain. SHe has a NSAID allergy. Using percocet and tylenol as needed. Will continue iv unasyn given febrile earlier. White count is stable on CBC. Continue postoperative cares.
[2021-06-18] MEDS: Docusate Sodium 100 MG Cap PO SCH ×2 (10:47→20:21)
[2021-06-18] MEDS ORDERED: Ampicillin/Sulbactam Na 3 GM in Sodium Chloride 0.9% 100 ML IV SCH (11:00)
[2021-06-18] MEDS ORDERED: Iron Sucrose Complex 500 MG in Sodium Chloride 0.9% 250 ML IV ONE (17:47)
[2021-06-19] MEDS: Simethicone 80 MG Tab.Chew PO SCH ×5 (00:42→17:58)
[2021-06-19] MEDS: Acetaminophen/oxyCODONE 325-5 MG Tab PO PRN ×6 (01:14→21:59)
[2021-06-19] MEDS: Ampicillin/Sulbactam Na 1.5 GM in Sodium Chloride 0.9% 50 ML IV SCH ×3 (02:09→17:57)
[2021-06-19] MEDS: Docusate Sodium 100 MG Cap PO SCH ×2 (10:13→21:59)
--- NOTE | 2021-06-19 10:28 | PCM.PNPP ---
- General Info Date of Service: 06/19/21 Functional Status: Reports: Pain Controlled, Tolerating Diet, Ambulating, Urinating (patient is having some neuropathy from pushing for 3 hours, so control is still intermittent) - Review of Systems General: Reports: Fatigue. Denies: Fever, Weakness Pulmonary: Denies: Shortness of Breath Cardiovascular: Denies: Chest Pain, Palpitations, Lightheadedness Gastrointestinal: Denies: Abdominal Pain, Nausea, Vomiting Genitourinary: Reports: Incontinence (having some control issues as bladder feels "numb"). Denies: Dysuria, Flank Pain Musculoskeletal: Reports: No Symptoms Skin: Reports: No Symptoms Neurological: Reports: No Symptoms - General Info Date of Service: 06/19/21 - Patient Data Vital Signs - Most Recent: Last Vital Signs Temp 36.2 C 06/19/21 07:31 Pulse 105 H 06/19/21 07:31 Resp 18 06/19/21 07:31 BP 116/79 06/19/21 07:31 Pulse Ox 97 06/19/21 07:31 Weight - Most Recent: 83.007 kg I&O - Last 24 Hours: Intake & Output 06/18/21 06/19/21 06/19/21 22:59 06:59 14:59 Intake Total 325 Balance 325 Lab Results - Last 24 Hours: Laboratory Results - last 24 hr 06/16/21 Range/Units 14:45 RPR Non-Reac (Non-Reac) Med Orders - Current: Current Medications Bisacodyl (Bisacodyl 10 Mg Supp) 10 mg RECTAL ONETIME PRN PRN Reason: Constipation Diphenhydramine HCl (Diphenhydramine 50 Mg/Ml Sdv) 25 mg IVPUSH Q6H PRN PRN Reason: Itching or Nausea Docusate Sodium (Docusate Sodium 100 Mg Cap) 100 mg PO BID [facility] Last Admin: 06/19/21 10:13 Dose: 100 mg Documented by: Emollient Ointment (Lanolin 100% Cream 7 Gm Tube) 0 gm TOP ASDIRECTED PRN PRN Reason: Sore Nipples Lactated Ringer's (Ringers, Lactated) 1,000 mls @ 125 mls/hr IV ASDIRECTED [facility] Last Admin: 06/17/21 17:42 Dose: 999 mls/hr Documented by: Tranexamic Acid 1,000 mg/ (Sodium Chloride) 110 mls @ 660 mls/hr IV ONETIME PRN PRN Reason: Bleeding Ampicillin Sodium/Sulbactam (Sodium 1.5 gm/ Sodium Chloride) 50 mls @ 100 mls/hr IV Q8H [facility] Stop: 06/20/21 01:29 Last Admin: 06/19/21 10:20 Dose: 100 mls/hr Documented by: Methylergonovine Maleate (Methylergonovine 0.2 Mg/1 Ml Amp) 0.2 mg IM ONETIME PRN PRN Reason: Excessive Vaginal Bleeding Misoprostol (Misoprostol 200 Mcg Tab) 1,000 mcg RECTAL ONETIME PRN PRN Reason: excessive bleeding Ondansetron HCl (Ondansetron 4 Mg/2 Ml Sdv) 4 mg IVPUSH Q4H PRN PRN Reason: Nausea/Vomiting Oxycodone/Acetaminophen (Acetaminophen/Oxycodone 325-5 Mg Tab) 1 tab PO Q4H PRN PRN Reason: Pain (severe 7-10) Last Admin: 06/19/21 09:19 Dose: 1 tab Documented by: Oxycodone/Acetaminophen (Acetaminophen/Oxycodone 325-5 Mg Tab) 2 tab PO Q4H PRN PRN Reason: Pain (severe 7-10) Oxytocin (Oxytocin 10 Units/1 Ml Sdv) 10 unit IM ASDIRECTED PRN PRN Reason: Excessive Vaginal Bleeding Simethicone (Simethicone 80 Mg Tab.Chew) 160 mg PO QID [facility] Last Admin: 06/19/21 06:38 Dose: 160 mg Documented by: Sodium Chloride (Sodium Chloride 0.9% 10 Ml Syringe) 10 ml FLUSH ASDIRECTED PRN PRN Reason: Keep Vein Open Sodium Chloride (Sodium Chloride 0.9% 2.5 Ml Syringe) 2.5 ml FLUSH ASDIRECTED PRN PRN Reason: Keep Vein Open Sodium Chloride (Sodium Chloride 0.9% 10 Ml Sdv) 10 ml IV ASDIRECTED PRN PRN Reason: IV Use Discontinued Medications Acetaminophen (Acetaminophen 500 Mg Tab) 1,000 mg PO ONETIME ONE Stop: 06/17/21 05:04 Last Admin: 06/17/21 05:08 Dose: 1,000 mg Documented by: Acetaminophen (Acetaminophen 500 Mg Tab) Confirm Administered Dose 1,000 mg .ROUTE .[facility] ONE Stop: 06/17/21 05:07 Last Admin: 06/17/21 17:55 Dose: Not Given Documented by: Acetaminophen (Acetaminophen 500 Mg Tab) 1,000 mg PO ONETIME ONE Stop: 06/18/21 06:23 Last Admin: 06/18/21 06:53 Dose: 1,000 mg Documented by: Bupivacaine HCl (Bupivacaine 0.5% 10 Ml Sdv) Confirm Administered Dose 20 ml .ROUTE .[facility] ONE Stop: 06/17/21 08:43 Butorphanol Tartrate (Butorphanol 1 Mg/Ml Sdv) 1 mg IVPUSH Q1H PRN PRN Reason: Pain (severe 7-10) Last Admin: 06/16/21 20:59 Dose: 1 mg Documented by: Carboprost Tromethamine (Carboprost Tromethamine 250 Mcg/1 Ml Amp) 250 mcg IM ASDIRECTED PRN PRN Reason: Post Hemorrhage Cefazolin Sodium (Cefazolin 1 Gm Vial) Confirm Administered Dose 2 gm .ROUTE .[facility] ONE Stop: 06/17/21 08:53 Diphenhydramine HCl (Diphenhydramine 50 Mg/Ml Sdv) 25 mg IVPUSH ONETIME ONE Stop: 06/17/21 10:33 Last Admin: 06/17/21 10:55 Dose: 25 mg Documented by: Fentanyl (Fentanyl 100 Mcg/2 Ml Sdv) Confirm Administered Dose 100 mcg .ROUTE .[facility] ONE Stop: 06/17/21 08:44 Lactated Ringer's (Ringers, Lactated) 1,000 mls @ 150 mls/hr IV ASDIRECTED [facility] Last Admin: 06/17/21 00:08 Dose: 150 mls/hr Documented by: Oxytocin/Sodium Chloride (Oxytocin 30 Unit/500 Ml-Ns) 30 unit in 500 mls @ 250 mls/hr IV TITRATE [facility] Tranexamic Acid 1,000 mg/ (Sodium Chloride) 110 mls @ 660 mls/hr IV ONETIME PRN PRN Reason: Bleeding Ropivacaine (Naropin 0.2%) Confirm Administered Dose 200 mls @ as directed .ROUTE .[facility] ONE Stop: 06/16/21 23:19 Last Admin: 06/17/21 17:56 Dose: Not Given Documented by: Ropivacaine (Naropin 0.2%) Confirm Administered Dose 200 mls @ as directed .ROUTE .[facility] ONE Stop: 06/16/21 23:38 Last Admin: 06/17/21 17:55 Dose: Not Given Documented by: Ampicillin Sodium 2 gm/ Sodium (Chloride) 100 mls @ 200 mls/hr IV Q6H [facility] Stop: 06/18/21 01:29 Last Admin: 06/17/21 07:27 Dose: 200 mls/hr Documented by: Gentamicin Sulfate 350 mg/ (Sodium Chloride) 58.75 mls @ 100 mls/hr IV ONETIME ONE Stop: 06/17/21 07:50 Last Admin: 06/17/21 07:57 Dose: 100 mls/hr Documented by: Oxytocin/Sodium Chloride (Oxytocin 30 Unit/500 Ml-Ns) 30 unit in 500 mls @ 2 mls/hr IV TITRATE [facility]; Protocol Last Infusion: 06/17/21 08:35 Dose: 0 munits/min, 0 mls/hr Documented by: Ampicillin Sodium/Sulbactam (Sodium 1.5 gm/ Sodium Chloride) 50 mls @ 150 mls/hr IV Q8H [facility] Stop: 06/18/21 02:34 Last Admin: 06/18/21 03:05 Dose: 150 mls/hr Documented by: Sodium Chloride (Normal Saline) Confirm Administered Dose 50 mls @ as directed .ROUTE .STK-MED ONE Stop: 06/17/21 10:46 Last Admin: 06/17/21 17:55 Dose: Not Given Documented by: Ampicillin Sodium/Sulbactam (Sodium 3 gm/ Sodium Chloride) 100 mls @ 200 mls/hr IV Q8H [facility] Iron Sucrose 500 mg/ Sodium (Chloride) 275 mls @ 62.5 mls/hr IV ONETIME ONE Stop: 06/18/21 22:10 Last Admin: 06/18/21 20:36 Dose: 62.5 mls/hr Documented by: Ketorolac Tromethamine (Ketorolac 30 Mg/Ml Sdv) Confirm Administered Dose 30 mg .ROUTE .STK-MED ONE Stop: 06/17/21 08:57 Lidocaine HCl (Lidocaine 1% 50 Ml Mdv) 50 ml INJECT ONETIME PRN PRN Reason: Laceration repair Methylergonovine Maleate (Methylergonovine 0.2 Mg/1 Ml Amp) 0.2 mg IM ASDIRECTED PRN PRN Reason: Post Hemorrhage Misoprostol (Misoprostol 200 Mcg Tab) 200 mcg PO ONETIME PRN PRN Reason: Post Hemorrhage Misoprostol (Misoprostol 50 Mcg (1/2 Of 100 Mcg) Tab) 25 mcg VAG ONETIME ONE Stop: 06/16/21 19:58 Morphine Sulfate (Morphine Pf 10 Mg/10 Ml Sdv) Confirm Administered Dose 10 mg .ROUTE .STK-MED ONE Stop: 06/17/21 09:26 Nalbuphine HCl (Nalbuphine 10 Mg/1 Ml Vial) 10 mg IVPUSH Q1H PRN PRN Reason: Pain (severe 7-10) Last Admin: 06/16/21 22:15 Dose: 10 mg Documented by: Ondansetron HCl (Ondansetron 4 Mg/2 Ml Sdv) 4 mg IVPUSH Q4H PRN PRN Reason: Vomiting Last Admin: 06/16/21 21:05 Dose: 4 mg Documented by: Ondansetron HCl (Ondansetron 4 Mg/2 Ml Sdv) Confirm Administered Dose 4 mg .ROUTE .STK-MED ONE Stop: 06/16/21 21:04 Last Admin: 06/17/21 17:56 Dose: Not Given Documented by: Ondansetron HCl (Ondansetron 4 Mg/2 Ml Sdv) Confirm Administered Dose 4 mg .ROUTE .STK-MED ONE Stop: 06/17/21 08:57 Oxytocin (Oxytocin 10 Units/1 Ml Sdv) Confirm Administered Dose 30 unit .ROUTE .STK-MED ONE Stop: 06/17/21 08:57 Sterile Water (Water For Irrigation,Sterile 1,000 Ml Container) 1,000 ml IRR ASDIRECTED PRN PRN Reason: delivery - Interaction Disposition, : [place] to Nursery Infant Feeding: Attempted ; Nursed Fair/Poor Support Person: Significant Other - Recovery Exam Fundal Tone: Firm Fundal Level: 1 Fingerbreadths Below Umbilicus Fundal Placement: Midline Lochia Amount: Scant Lochia Color: Rubra/Red Perineum Description: Intact, Minimal Bruising/Swelling Episiotomy/Laceration: None Bladder Status: Voiding Urinary Elimination: Voided - Exam General: Alert, Oriented Lungs: Normal Respiratory Effort Cardiovascular: Regular Rate, Regular Rhythm GI/Abdominal Exam: Normal Bowel Sounds, Soft Extremities: Pedal Edema (trace). No: Omega's Sign Skin: Warm, Dry, Intact Wound/Incisions: Healing Well Neurological: No New Focal Deficit Psy/Mental Status: Alert, Normal Affect, Normal Mood - Problem List & Annotations (1) Status post primary low transverse section SNOMED Code(s): 698643054, 61616507, 616780265, 132513156, 257895323 Code(s): Z98.891 - HISTORY OF UTERINE SCAR FROM PREVIOUS SURGERY Status: Acute Current Visit: Yes (2) Chorioamnionitis, delivered, current hospitalization SNOMED Code(s): 12258577, 278072249 Code(s): O41.1290 - CHORIOAMNIONITIS, UNSP TRIMESTER, NOT APPLICABLE OR UNSP Status: Acute Current Visit: Yes (3) Anemia due to acute blood loss SNOMED Code(s): 736033678 Code(s): D62 - ACUTE POSTHEMORRHAGIC ANEMIA Status: Acute Current Visit: Yes - Problem List Review Problem List Initiated/Reviewed/Updated: Yes - Assessment Assessment:: 30-year-old s/p primary transverse section POD #2. - Plan Plan:: Patient remains afebrile on unasyn. She received iv iron last night. Will reevaluate hemoglobin in the morning. She is not having any orthostatic symptoms. Continue postoperative cares. Ambulate today.
[2021-06-20] MEDS: Simethicone 80 MG Tab.Chew PO SCH ×2 (00:03→06:04)
[2021-06-20] MEDS: Ampicillin/Sulbactam Na 1.5 GM in Sodium Chloride 0.9% 50 ML IV SCH (01:59)
[2021-06-20] MEDS: Acetaminophen/oxyCODONE 325-5 MG Tab PO PRN ×3 (01:59→10:02)
[2021-06-20] MEDS: Docusate Sodium 100 MG Cap PO SCH (08:15)
--- NOTE | 2021-06-20 10:54 | PCM.PNPP ---
- General Info Date of Service: 06/20/21 Functional Status: Reports: Pain Controlled, Tolerating Diet, Ambulating, Urinating - Review of Systems General: Denies: Fever, Weakness, Fatigue Pulmonary: Denies: Shortness of Breath Cardiovascular: Denies: Chest Pain, Palpitations, Lightheadedness Gastrointestinal: Denies: Abdominal Pain, Nausea, Vomiting Genitourinary: Denies: Flank Pain Musculoskeletal: Reports: No Symptoms Skin: Reports: No Symptoms Neurological: Reports: No Symptoms Psychiatric: Reports: No Symptoms - General Info Date of Service: 06/20/21 - Patient Data Vital Signs - Most Recent: Last Vital Signs Temp 36.1 C 06/20/21 07:00 Pulse 100 06/20/21 07:00 Resp 18 06/20/21 07:00 BP 124/78 06/20/21 07:00 Pulse Ox 97 06/20/21 07:00 Weight - Most Recent: 83.007 kg I&O - Last 24 Hours: Intake & Output 06/19/21 06/20/21 06/20/21 22:59 06:59 14:59 Intake Total 50 Balance 50 Lab Results - Last 24 Hours: Laboratory Results - last 24 hr 06/20/21 Range/Units 05:35 WBC 7.77 (4.0-11.0) K/uL RBC 2.96 L (4.30-5.90) M/uL Hgb 8.7 L (12.0-16.0) g/dL Hct 26.1 L (36.0-46.0) % MCV 88.2 (80.0-98.0) fL MCH 29.4 (27.0-32.0) pg MCHC 33.3 (31.0-37.0) g/dL RDW Std Deviation 48.9 (28.0-62.0) fl RDW Coeff of Tita 15 (11.0-15.0) % Plt Count 277 (150-400) K/uL MPV 10.30 (7.40-12.00) fL Neut % (Auto) 67.9 (48.0-80.0) % Lymph % (Auto) 18.3 (16.0-40.0) % Kerr % (Auto) 8.9 (0.0-15.0) % Eos % (Auto) 4.6 (0.0-7.0) % Baso % (Auto) 0.3 (0.0-1.5) % Neut # (Auto) 5.3 (1.4-5.7) K/uL Lymph # (Auto) 1.4 (0.6-2.4) K/uL Kerr # (Auto) 0.7 (0.0-0.8) K/uL Eos # (Auto) 0.4 (0.0-0.7) K/uL Baso # (Auto) 0.0 (0.0-0.1) K/uL Nucleated RBC % 0.0 /100WBC Nucleated RBCs # 0 K/uL Med Orders - Current: Current Medications Bisacodyl (Bisacodyl 10 Mg Supp) 10 mg RECTAL ONETIME PRN PRN Reason: Constipation Diphenhydramine HCl (Diphenhydramine 50 Mg/Ml Sdv) 25 mg IVPUSH Q6H PRN PRN Reason: Itching or Nausea Docusate Sodium (Docusate Sodium 100 Mg Cap) 100 mg PO BID [facility] Last Admin: 06/20/21 08:15 Dose: 100 mg Documented by: Emollient Ointment (Lanolin 100% Cream 7 Gm Tube) 0 gm TOP ASDIRECTED PRN PRN Reason: Sore Nipples Lactated Ringer's (Ringers, Lactated) 1,000 mls @ 125 mls/hr IV ASDIRECTED [facility] Last Admin: 06/17/21 17:42 Dose: 999 mls/hr Documented by: Tranexamic Acid 1,000 mg/ (Sodium Chloride) 110 mls @ 660 mls/hr IV ONETIME PRN PRN Reason: Bleeding Methylergonovine Maleate (Methylergonovine 0.2 Mg/1 Ml Amp) 0.2 mg IM ONETIME PRN PRN Reason: Excessive Vaginal Bleeding Misoprostol (Misoprostol 200 Mcg Tab) 1,000 mcg RECTAL ONETIME PRN PRN Reason: excessive bleeding Ondansetron HCl (Ondansetron 4 Mg/2 Ml Sdv) 4 mg IVPUSH Q4H PRN PRN Reason: Nausea/Vomiting Oxycodone/Acetaminophen (Acetaminophen/Oxycodone 325-5 Mg Tab) 1 tab PO Q4H PRN PRN Reason: Pain (severe 7-10) Last Admin: 06/20/21 10:02 Dose: 1 tab Documented by: Oxycodone/Acetaminophen (Acetaminophen/Oxycodone 325-5 Mg Tab) 2 tab PO Q4H PRN PRN Reason: Pain (severe 7-10) Oxytocin (Oxytocin 10 Units/1 Ml Sdv) 10 unit IM ASDIRECTED PRN PRN Reason: Excessive Vaginal Bleeding Simethicone (Simethicone 80 Mg Tab.Chew) 160 mg PO QID [facility] Last Admin: 06/20/21 06:04 Dose: 160 mg Documented by: Sodium Chloride (Sodium Chloride 0.9% 10 Ml Syringe) 10 ml FLUSH ASDIRECTED PRN PRN Reason: Keep Vein Open Sodium Chloride (Sodium Chloride 0.9% 2.5 Ml Syringe) 2.5 ml FLUSH ASDIRECTED PRN PRN Reason: Keep Vein Open Sodium Chloride (Sodium Chloride 0.9% 10 Ml Sdv) 10 ml IV ASDIRECTED PRN PRN Reason: IV Use Discontinued Medications Acetaminophen (Acetaminophen 500 Mg Tab) 1,000 mg PO ONETIME ONE Stop: 06/17/21 05:04 Last Admin: 06/17/21 05:08 Dose: 1,000 mg Documented by: Acetaminophen (Acetaminophen 500 Mg Tab) Confirm Administered Dose 1,000 mg .ROUTE .STK-MED ONE Stop: 06/17/21 05:07 Last Admin: 06/17/21 17:55 Dose: Not Given Documented by: Acetaminophen (Acetaminophen 500 Mg Tab) 1,000 mg PO ONETIME ONE Stop: 06/18/21 06:23 Last Admin: 06/18/21 06:53 Dose: 1,000 mg Documented by: Bupivacaine HCl (Bupivacaine 0.5% 10 Ml Sdv) Confirm Administered Dose 20 ml .ROUTE .STK-MED ONE Stop: 06/17/21 08:43 Butorphanol Tartrate (Butorphanol 1 Mg/Ml Sdv) 1 mg IVPUSH Q1H PRN PRN Reason: Pain (severe 7-10) Last Admin: 06/16/21 20:59 Dose: 1 mg Documented by: Carboprost Tromethamine (Carboprost Tromethamine 250 Mcg/1 Ml Amp) 250 mcg IM ASDIRECTED PRN PRN Reason: Post Hemorrhage Cefazolin Sodium (Cefazolin 1 Gm Vial) Confirm Administered Dose 2 gm .ROUTE .STK-MED ONE Stop: 06/17/21 08:53 Diphenhydramine HCl (Diphenhydramine 50 Mg/Ml Sdv) 25 mg IVPUSH ONETIME ONE Stop: 06/17/21 10:33 Last Admin: 06/17/21 10:55 Dose: 25 mg Documented by: Fentanyl (Fentanyl 100 Mcg/2 Ml Sdv) Confirm Administered Dose 100 mcg .ROUTE .STK-MED ONE Stop: 06/17/21 08:44 Lactated Ringer's (Ringers, Lactated) 1,000 mls @ 150 mls/hr IV ASDIRECTED [facility] Last Admin: 06/17/21 00:08 Dose: 150 mls/hr Documented by: Oxytocin/Sodium Chloride (Oxytocin 30 Unit/500 Ml-Ns) 30 unit in 500 mls @ 250 mls/hr IV TITRATE [facility] Tranexamic Acid 1,000 mg/ (Sodium Chloride) 110 mls @ 660 mls/hr IV ONETIME PRN PRN Reason: Bleeding Ropivacaine (Naropin 0.2%) Confirm Administered Dose 200 mls @ as directed .ROUTE .[facility] ONE Stop: 06/16/21 23:19 Last Admin: 06/17/21 17:56 Dose: Not Given Documented by: Ropivacaine (Naropin 0.2%) Confirm Administered Dose 200 mls @ as directed .ROUTE .[facility]-MED ONE Stop: 06/16/21 23:38 Last Admin: 06/17/21 17:55 Dose: Not Given Documented by: Ampicillin Sodium 2 gm/ Sodium (Chloride) 100 mls @ 200 mls/hr IV Q6H [facility] Stop: 06/18/21 01:29 Last Admin: 06/17/21 07:27 Dose: 200 mls/hr Documented by: Gentamicin Sulfate 350 mg/ (Sodium Chloride) 58.75 mls @ 100 mls/hr IV ONETIME ONE Stop: 06/17/21 07:50 Last Admin: 06/17/21 07:57 Dose: 100 mls/hr Documented by: Oxytocin/Sodium Chloride (Oxytocin 30 Unit/500 Ml-Ns) 30 unit in 500 mls @ 2 mls/hr IV TITRATE [facility]; Protocol Last Infusion: 06/17/21 08:35 Dose: 0 munits/min, 0 mls/hr Documented by: Ampicillin Sodium/Sulbactam (Sodium 1.5 gm/ Sodium Chloride) 50 mls @ 150 mls/hr IV Q8H [facility] Stop: 06/18/21 02:34 Last Admin: 06/18/21 03:05 Dose: 150 mls/hr Documented by: Sodium Chloride (Normal Saline) Confirm Administered Dose 50 mls @ as directed .ROUTE .STK-MED ONE Stop: 06/17/21 10:46 Last Admin: 06/17/21 17:55 Dose: Not Given Documented by: Ampicillin Sodium/Sulbactam (Sodium 3 gm/ Sodium Chloride) 100 mls @ 200 mls/hr IV Q8H [facility] Ampicillin Sodium/Sulbactam (Sodium 1.5 gm/ Sodium Chloride) 50 mls @ 100 mls/hr IV Q8H [facility] Stop: 06/20/21 01:29 Last Admin: 06/20/21 01:59 Dose: 100 mls/hr Documented by: Iron Sucrose 500 mg/ Sodium (Chloride) 275 mls @ 62.5 mls/hr IV ONETIME ONE Stop: 06/18/21 22:10 Last Admin: 06/18/21 20:36 Dose: 62.5 mls/hr Documented by: Ketorolac Tromethamine (Ketorolac 30 Mg/Ml Sdv) Confirm Administered Dose 30 mg .ROUTE .STK-MED ONE Stop: 06/17/21 08:57 Lidocaine HCl (Lidocaine 1% 50 Ml Mdv) 50 ml INJECT ONETIME PRN PRN Reason: Laceration repair Methylergonovine Maleate (Methylergonovine 0.2 Mg/1 Ml Amp) 0.2 mg IM ASDIRECTED PRN PRN Reason: Post Hemorrhage Misoprostol (Misoprostol 200 Mcg Tab) 200 mcg PO ONETIME PRN PRN Reason: Post Hemorrhage Misoprostol (Misoprostol 50 Mcg (1/2 Of 100 Mcg) Tab) 25 mcg VAG ONETIME ONE Stop: 06/16/21 19:58 Morphine Sulfate (Morphine Pf 10 Mg/10 Ml Sdv) Confirm Administered Dose 10 mg .ROUTE .STK-MED ONE Stop: 06/17/21 09:26 Nalbuphine HCl (Nalbuphine 10 Mg/1 Ml Vial) 10 mg IVPUSH Q1H PRN PRN Reason: Pain (severe 7-10) Last Admin: 06/16/21 22:15 Dose: 10 mg Documented by: Ondansetron HCl (Ondansetron 4 Mg/2 Ml Sdv) 4 mg IVPUSH Q4H PRN PRN Reason: Vomiting Last Admin: 06/16/21 21:05 Dose: 4 mg Documented by: Ondansetron HCl (Ondansetron 4 Mg/2 Ml Sdv) Confirm Administered Dose 4 mg .ROUTE .STK-MED ONE Stop: 06/16/21 21:04 Last Admin: 06/17/21 17:56 Dose: Not Given Documented by: Ondansetron HCl (Ondansetron 4 Mg/2 Ml Sdv) Confirm Administered Dose 4 mg .ROUTE .STK-MED ONE Stop: 06/17/21 08:57 Oxytocin (Oxytocin 10 Units/1 Ml Sdv) Confirm Administered Dose 30 unit .ROUTE .STK-MED ONE Stop: 06/17/21 08:57 Sterile Water (Water For Irrigation,Sterile 1,000 Ml Container) 1,000 ml IRR ASDIRECTED PRN PRN Reason: delivery - Interaction Disposition, : in Room with Family Infant Interaction: Holding Feeding: Attempted ; Nursed Fair/Poor Support Person: Significant Other - Recovery Exam Fundal Tone: Firm Fundal Level: 2 Fingerbreadths Below Umbilicus Fundal Placement: Midline Lochia Amount: Scant Lochia Color: Rubra/Red Perineum Description: Intact, Minimal Bruising/Swelling Episiotomy/Laceration: None Bladder Status: Voiding Urinary Elimination: Voided - Exam General: Alert, Oriented Lungs: Normal Respiratory Effort Cardiovascular: Regular Rate, Regular Rhythm GI/Abdominal Exam: Normal Bowel Sounds, Soft Extremities: Pedal Edema (trace). No: Omega's Sign Skin: Warm, Dry, Intact Wound/Incisions: Healing Well. No: Drainage, Erythema Neurological: No New Focal Deficit Psy/Mental Status: Alert, Normal Affect, Normal Mood - Problem List & Annotations (1) Status post primary low transverse section SNOMED Code(s): 704532048, 11645918, 127653033, 784128386, 386236117 Code(s): Z98.891 - HISTORY OF UTERINE SCAR FROM PREVIOUS SURGERY Status: Acute Current Visit: Yes (2) Chorioamnionitis, delivered, current hospitalization SNOMED Code(s): 15069542, 449149985 Code(s): O41.1290 - CHORIOAMNIONITIS, UNSP TRIMESTER, NOT APPLICABLE OR UNSP Status: Acute Current Visit: Yes (3) Anemia due to acute blood loss SNOMED Code(s): 672639179 Code(s): D62 - ACUTE POSTHEMORRHAGIC ANEMIA Status: Acute Current Visit: Yes - Problem List Review Problem List Initiated/Reviewed/Updated: Yes - My Orders Last 24 Hours: My Active Orders 06/20/21 10:40 Ready for Discharge [RC] PER UNIT ROUTINE - Assessment Assessment:: 30-year-old s/p primary transverse section POD #3. - Plan Plan:: Patient doing well overall--remains afebrile for >48 hours. VS are stable, pulse in in the 90s. Hemoglobin is stable. Patient would like to go home. Discharge instructions reviewed. Follow up at [facility] 2 and 6 weeks. Infection and bleeding warnings reviewed. Discharge to home today.
--- NOTE | 2021-06-21 09:40 | PCM48HPAN ---
Post Anesthesia Note - EVALUATION WITHIN 48HRS OF ANESTHETIC Vital Signs in Normal Range: Yes Patient Participated in Evaluation: Yes Respiratory Function Stable: Yes Airway Patent: Yes Cardiovascular Function Stable: Yes Hydration Status Stable: Yes Pain Control Satisfactory: Yes Nausea and Vomiting Control Satisfactory: Yes Mental Status Recovered: Yes Vital Signs: Last Vital Signs Temp 96.9 F 06/20/21 07:00 Pulse 100 06/20/21 07:00 Resp 18 06/20/21 07:00 BP 124/78 06/20/21 07:00 Pulse Ox 97 06/20/21 07:00
== END 2021-06-20 13:28 | disposition home or self-care (01) | DRG 786 ==
LOC: MW.OBCHECK 11:08 → MW.OB 11:13 → OBSVTOIN 14:11 → INTOOBSV 14:11 → MW.OBCHECK 14:11 → MW.OB 14:11 → OBSVTOIN 06-17 10:00 → MW.OB 06-17 15:49
PROVIDERS: ADMIT Obstetrics & Gynecology; ATTEND Obstetrics & Gynecology
PROC: 10D00Z1 Extraction of Products of Conception, Low, Open Approach (ICD-10-PCS; principal; 2021-06-17)
PROC: 4A1HXCZ Monitoring of Products of Conception, Cardiac Rate, External Approach (ICD-10-PCS; 2021-06-17)
DX: O48.0 Post-term pregnancy (principal); O41.1230 Chorioamnionitis, third trimester, not applicable or unspecified; D62 Acute posthemorrhagic anemia; Z3A.41 41 weeks gestation of pregnancy; Z37.0 Single live birth; O76 Abnormality in fetal heart rate and rhythm complicating labor and delivery; O69.0XX0 Labor and delivery complicated by prolapse of cord, not applicable or unspecified; O77.0 Labor and delivery complicated by meconium in amniotic fluid; O99.02 Anemia complicating childbirth
CPT/HCPCS: 01961; 36415; 51702; 59025; 85025; 85027; 86592; 86850; 86900; 86901; A9270-GY; J0290; J0295; J0595; J0690; J1200; J1580; J1756; J1885; J2270; J2300; J2405; J2590; J2795; J3010; J3490; J7050; J7120; U0002